=== PATIENT | female | born 1945 | race Caucasian/White ===

== ENCOUNTER → 2017-01-27 | Day surgery (SDC) | payer MEDICARE, BC ==
[~2017-01-27] VITALS: Ht 152.4 cm; Wt 59.0 kg
[~2017-01-27] MED LIST: BUPIVACAINE HCL 0.25% 30 ML VIAL As Ordered ONE; CELE-19 PO; COUM2.5T11 PO; GABA-282 PO; GLYCOPYRROLATE INJ 0.2 MG/ML 2 ML VIAL As Ordered ONE; KETOROLAC 30 MG/ML VIAL (J1885) IV PRN; LATA5OPD OU; LIDOCAINE 2% INJ 100 MG/5 ML SDV (FOR ANES.) As Ordered ONE; LOSA100T36 PO; LR 1,000 ML IV ONE; LR 1,000 ML IV SCH; MIDAZOLAM INJ 2 MG/2 ML VIAL (J2250) As Ordered ONE; MORPHINE 2 MG/ML 1ML SYRINGE IV PRN; MULT1TAB10 PO; NEOSTIGMINE 1MG/ML 5 ML SYRINGE (J2710) As Ordered ONE; NORCO, ANEXSIA 5/325MG TABLET (HYDROcodone/ACETAMINOPHEN) PO PRN; ONDANSETRON 4MG/2ML VIAL (J2405) As Ordered ONE; ONDANSETRON 4MG/2ML VIAL (J2405) IV PRN; PERC5TAB6 PO; PRIL20CA9 PO; PROPOFOL 200 MG/20 ML VIAL As Ordered ONE; ROCURONIUM BROMIDE 50 MG/5 ML VIAL As Ordered ONE; ULTR37.52 PO; VITA2000 PO; VITA500C14 PO; dexameTHASONE 4 MG/ML 1ML VIAL (J1100) As Ordered ONE; ePHEDrine SULFATE 25 MG/5 ML(5MG/ML) SYRINGE As Ordered ONE; fentaNYL 100 MCG/2 ML INJECTION (J3010) IV PRN; fentaNYL 250 MCG/5 ML INJECTION (J3010) As Ordered ONE; hydrALAZINE INJ 20 MG/ML VIAL As Ordered ONE
[2017-01-27 19:30] VITALS: BP 162/77
--- NOTE | 2017-01-27 22:20 | RO ---
DATE OF PROCEDURE: 01/27/2017 PREOPERATIVE DIAGNOSIS: Right lower quadrant ventral hernia. POSTOPERATIVE DIAGNOSIS: Right lower quadrant ventral hernia. PROCEDURE PERFORMED: Laparoscopic repair of right lower quadrant ventral hernia with 9 cm round Parietex patch. The lot number was [id number]. SURGEON: Dr. Vishal Toney EVIDENCE TECHNICIAN: Dr. Shell ANESTHESIA: General. INDICATIONS FOR PROCEDURE: The patient is a 71-year-old woman who has noticed a small bulge in the right lower quadrant of her abdomen for several years. She did have a hysterectomy performed many years ago through a low transverse incision. A CT scan approximately 2 years ago showed a small hernia in the right lower quadrant that penetrated through the inner layers of the abdominal wall but the external oblique layer remained intact. At that time, the hernia was relatively small and asymptomatic. She has subsequently noted that it became somewhat larger and has become symptomatic. She is now for repair of her right lower quadrant hernia. DESCRIPTION OF PROCEDURE: The patient was placed supine on the operating table and was placed under general endotracheal anesthesia. The patient's abdomen was prepped and draped in a sterile fashion. Initially 0.25% Marcaine was infiltrated in the left lateral abdomen at about the level of the umbilicus. A small incision was made and a Veress needle was inserted. After positive hanging drop test, the abdomen was insufflated with carbon dioxide gas. A 5 mm port was placed over 5 mm scope and this was advanced through the abdominal wall without difficulty. Initial examination showed a definite approximately 3-4 cm oval hernia defect in the right lower quadrant with some omentum protruding into it. She had some adhesions in the right lower quadrant. She had evidence of a small left inguinal hernia which extended perhaps to the level of the pubic tubercle, but not any further and was relatively small. A second 5 mm trocar was placed in the left lower quadrant. With some direct pressure over her hernia, it was possible to reduce some additional fronds of omentum from within the hernia just by pressure. A Harmonic scalpel was used to reduce additional omentum from within the hernia by gentle traction. There were adhesions of fronds of the omentum around the opening of the hernia and these were lysed using the Harmonic scalpel to achieve a clear area around the defect. There appeared to be a moderately large hernia sac that extended out widely from the inner fascial defect beneath the external oblique. After clearing the anterior abdominal wall surrounding the defect, I elected to make a small incision over the hernia. An approximately 4 cm slightly oblique incision was made directly over the area of the defect. The incision was deepened down to the external oblique which was opened in the direction of its fibers. Underlying this, the hernia sac was identified, and this was removed by combination of cautery and blunt dissection. The hernia sac was excised at the level of the fascial defect internally using the cautery. Hemostasis was ensured with cautery. A 9 cm round Parietex patch was inserted into the abdomen through the open hernia defect. The peritoneum was then closed with a running suture of #0 chromic. The internal oblique and transversalis fascia were then approximated with interrupted simple sutures of #0 Vicryl. The external oblique was then closed with a running suture of #0 Vicryl as well. The abdomen was then reinflated. Inspection showed that the defect was nicely closed. The Parietex patch was manipulated onto the anterior abdominal wall over the sutured defect with a nice coverage on all sides. A SecureStrap tacking device was used to tack the mesh securely to the anterior abdominal wall with care to ensure that the nonadherent side was facing the bowel. This appeared to give a nice reconstruction of the area. After ensuring that there was no evident bleeding, the abdomen was deflated and the two trocars were removed. Approximately 10 mL of 0.25% Marcaine were infiltrated about the hernia site incision. The hernia site incision was approximated with several buried sutures of #3-0 chromic and the skin incisions were then all closed with #5-0 Vicryl and Steri-Strips. Light dressings were applied. The patient tolerated the procedure well without apparent complication. She was awakened in the operating room, extubated and moved to the recovery room in stable condition.
== END | disposition home or self-care (01) ==
LOC: M SDC 12:15
PROVIDERS: ATTEND Surgery
DX: K43.9 Ventral hernia without obstruction or gangrene (principal); H40.9 Unspecified glaucoma; I10 Essential (primary) hypertension; E78.00 Pure hypercholesterolemia, unspecified; K21.9 Gastro-esophageal reflux disease without esophagitis; C53.9 Malignant neoplasm of cervix uteri, unspecified; M12.9 Arthropathy, unspecified; M85.80 Other specified disorders of bone density and structure, unspecified site; Z88.1 Allergy status to other antibiotic agents; Z91.048 Other nonmedicinal substance allergy status; Z79.899 Other long term (current) drug therapy; Z90.710 Acquired absence of both cervix and uterus; Z98.51 Tubal ligation status
CPT/HCPCS: 49652; 88302; C1781; J1100; J2250; J2405; J2710; J3010

== ENCOUNTER → 2023-03-12 | Outpatient (REF) | payer MEDICARE, BC ==
[~2023-03-12] MED LIST changes: -BUPIVACAINE HCL 0.25% 30 ML VIAL As Ordered ONE; -CELE-19 PO; +CELE1CAP4 PO; -COUM2.5T11 PO; +COUM2.5T17 PO; -GLYCOPYRROLATE INJ 0.2 MG/ML 2 ML VIAL As Ordered ONE; -KETOROLAC 30 MG/ML VIAL (J1885) IV PRN; +LATA0.0013 OU; -LATA5OPD OU; -LIDOCAINE 2% INJ 100 MG/5 ML SDV (FOR ANES.) As Ordered ONE; -LOSA100T36 PO; +LOSA100T46 PO; -LR 1,000 ML IV ONE; -LR 1,000 ML IV SCH; -MIDAZOLAM INJ 2 MG/2 ML VIAL (J2250) As Ordered ONE; -MORPHINE 2 MG/ML 1ML SYRINGE IV PRN; -NEOSTIGMINE 1MG/ML 5 ML SYRINGE (J2710) As Ordered ONE; -NORCO, ANEXSIA 5/325MG TABLET (HYDROcodone/ACETAMINOPHEN) PO PRN; -ONDANSETRON 4MG/2ML VIAL (J2405) As Ordered ONE; -ONDANSETRON 4MG/2ML VIAL (J2405) IV PRN; +PERC5TAB12 PO; -PERC5TAB6 PO; -PROPOFOL 200 MG/20 ML VIAL As Ordered ONE; -ROCURONIUM BROMIDE 50 MG/5 ML VIAL As Ordered ONE; +ULTR1TAB PO; -ULTR37.52 PO; -dexameTHASONE 4 MG/ML 1ML VIAL (J1100) As Ordered ONE; -ePHEDrine SULFATE 25 MG/5 ML(5MG/ML) SYRINGE As Ordered ONE; -fentaNYL 100 MCG/2 ML INJECTION (J3010) IV PRN; -fentaNYL 250 MCG/5 ML INJECTION (J3010) As Ordered ONE; -hydrALAZINE INJ 20 MG/ML VIAL As Ordered ONE
== END ==
LOC: M SFHCDERM 14:17
PROVIDERS: ATTEND Nurse Practitioner Family
DX: C44.529 Squamous cell carcinoma of skin of other part of trunk (principal)

== ENCOUNTER → 2023-06-09 | Outpatient (REF) | payer MEDICARE, BC | LOC: M SFHCDERM 14:13 | PROVIDERS: ATTEND Physician Assistant | DX: L98.8 Other specified disorders of the skin and subcutaneous tissue (principal) ==